=== PATIENT | female | born 1975 | race Hispanic/Latino ===

== ENCOUNTER 2020-11-06 17:56 | Emergency (ER) | payer SELFPAY ==
[~2020-11-06] VITALS: Ht 157.5 cm; Wt 63.5 kg
[2020-11-07] MEDS ORDERED: ACETAMINOPHEN 325 MG TAB PO ONE (01:00)
== END 2020-11-06 19:30 | disposition home or self-care (01) ==
LOC: ER 18:20
DX: R50.9 Fever, unspecified (principal); R05 Cough; U07.1 COVID-19